=== PATIENT | female | born 1945 | race Caucasian/White ===

== ENCOUNTER 2016-09-30 14:12 | Outpatient (CLI) | payer OTHER ==
--- NOTE | 2016-09-30 16:37 | DIAGNOSTIC IMAGING REPORT ---
PROCEDURE: MR LUMBAR SPINE W/WO CONTRAST INDICATION: Back pain, lumbar surgery 2010 and bilateral radiculopathy. Initial encounter TECHNIQUE: T1, T2 and STIR sagittal images. T1 and T2 axial images. Following 19 mL of intravenous gadolinium (ProHance), FAT-SAT T1 sagittal and axial images were obtained. COMPARISON: Lumbar spine MRI 12/22/2013 FINDINGS: Grade 1 L1-2 retrolisthesis. Moderate degenerative changes most prominent at L2-3. There is multilevel with disc degeneration. No fracture or suspicious osseous lesions. Mild dextroscoliosis. Normal conus. L1-2: Moderate disc space narrowing with grade 1 retrolisthesis and mild circumferential disc bulge. No foraminal or spinal stenosis. L2-3: Moderate disc space narrowing with decreasing mild broad-based disc bulge. Mild facet arthropathy. Mild bilateral foraminal stenosis. No spinal stenosis. L3-4: Progression of mild right foraminal/lateral disc protrusion with mild facet arthropathy. There is new mild bilateral foraminal stenosis. No spinal stenosis. L4-5: Mild disc space narrowing with a small broad-based disc bulge associated mild facet arthropathy. Mild bilateral of foraminal stenosis, unchanged. Right hemilaminectomy with decreasing minor postoperative fibrosis at the origin of the right L5 nerve root. L5-S1: Minor central disc bulge with mild facet arthropathy. No spinal or foraminal stenosis. IMPRESSION: 1. Mild dextroscoliosis with moderate degenerative changes 2. Grade 1 L1-2 retrolisthesis 3. Moderately severe L2-3 degenerative changes with new mild bilateral foraminal stenosis 4. Progression of L3-4 right foraminal/lateral disc protrusion with mild bilateral foraminal stenosis 5. L4-5 right hemilaminectomy with improving postoperative fibrosis at the origin of the right L5 nerve root.
== END 2016-09-30 23:00 ==
LOC: MRI SRH 14:12
DX: M51.36 Other intervertebral disc degeneration, lumbar region (principal); M48.06 Spinal stenosis, lumbar region; Z98.890 Other specified postprocedural states